=== PATIENT | male | born 1935 | race Caucasian/White ===

== ENCOUNTER 2018-12-22 05:41 | Observation (INO) ==
[2018-12-22] MEDS ORDERED: ASPIRIN 81 MG TAB.CHEW PO ONE (05:50)
--- NOTE | 2018-12-22 05:55 | ERNOTE ---
Chest Pain/Cardiac HPI Chief Complaint: Chest Pain Time Seen by Provider: 12/22/18 05:42 Source: patient Exam Limitations: no limitations Immunizations: IMMUNIZATION HX Immunizations Up to Date No History of Influenza Vaccine More Information Required Hx Pneumococcal Vaccination More Information Required Allergies/Adverse Reactions: Allergies No Known Allergies Allergy (Verified 12/22/18 05:51) Home Medications: HOME MEDICATIONS Aspirin [Aspir 81] 81 mg PO DAILY 05/21/12 [Last Taken 11/05/12] Tamsulosin HCl [Flomax] 0.4 mg PO HS 05/21/12 [Last Taken 11/05/12] ibandronate 150 mg tablet 150 mg PO Q30D #3 tab 03/31/18 [Last Taken Unknown] acetaminophen 500 mg tablet 1,000 mg PO DAILY PRN tab 06/13/18 [Last Taken Unknown] pantoprazole 20 mg tablet,delayed release 20 mg PO DAILY #90 tab 07/14/18 [Last Taken Unknown] folic acid 1 mg tablet See Rx Instructions .ROUTE .COMPLEX #90 tablet 08/05/18 [Last Taken Unknown] amlodipine 10 mg tablet 10 mg PO DAILY #90 tab 11/11/18 [Last Taken Unknown] benazepril 20 mg tablet 20 mg PO DAILY #90 tab 12/04/18 [Last Taken Unknown] calcium carbonate 600 mg (1,500 mg)-vitamin D3 200 unit tablet 1 tab PO BID tab 12/11/18 [Last Taken Unknown] finasteride 5 mg tablet 5 mg PO .QOD tab 12/11/18 [Last Taken Unknown] methotrexate sodium 2.5 mg tablet 12.5 mg PO QWEEK tab 12/11/18 [Last Taken Unknown] Narrative: Patient woke up this morning with left sided chest pain, no other symptoms, no aggravating or alleviating symptoms, no prior heart disease Date (Duration): 12/22/18 Time (Timing): 03:00 Timing: constant Severity/Quality: severe, aching Location: shoulder, left chest Chest Pain Radiation: shoulders Activities at Onset: sleep Modifying Factors - Improves: Present: nothing Modifying Factors - Worsens: Present: nothing Nitro Today/Relief: no nitro taken today Aspirin Treatment Today: 81 mg x 1, provided at home Associated Symptoms: Absent: headache, dizziness, syncope, shortness of breath, diaphoresis, nausea, vomiting Prior Chest Pain/Cardiac Workup: Denies: prior chest pain, no prior cardiac workup Prior Treatment: Denies: recently seen, currently on antibiotics Review of Systems - Review of Systems Constitutional: Absent: recent illness, fever ENT: Present: no symptoms reported Respiratory: Absent: shortness of breath Cardiology: Present: See HPI, chest pain. Absent: palpitations Gastrointestinal/Abdominal: Absent: nausea, vomiting, abdominal pain Genitourinary: Present: no symptoms reported Musculoskeletal: Absent: back pain Neurological: Absent: headache, weakness, numbness Medical History (Updated 12/22/18 @ 07:31 by Nancy Mccormick MD) Hyperplasia, prostate (Chronic) Onset Date: Unknown benign localized hyperplasia of prostate without urinary obstruction and other lower urinary tract symptoms GERD (gastroesophageal reflux disease) (Chronic) Onset Date: Unknown GI bleed Hypertension (Chronic) Onset Date: Unknown Osteoporosis (Chronic) Onset Date: Unknown Parkinsonism (Chronic) Onset Date: 2007 Rheumatoid arthritis (Chronic) Onset Date: Unknown Cholelithiasis Onset Date: 07/11/08 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 Juli- hyperplastic polyp. Recheck 10yrs. H/O esophagogastroduodenoscopy Onset Date: 05/19/06 any--UGI BLEED---Dr. Bustos-negative 07-20-2008 with biopsy H/O hernia repair Onset Date: Unknown History of cataract surgery Onset Date: 08/30/[address] Mulligan History of laryngoscopy Onset Date: Unknown removal of cyst Hx of cholecystectomy Onset Date: 07/20/08 Dr. Bustos lap-sadia Hx of tonsillectomy Onset Date: Unknown S/P nasal surgery Onset Date: Unknown Basal cell ca removed-Dr Lopez Family History: Family History (Updated 11/12/17 @ 06:58 by Van Be MA) Father Hypertension Prostate cancer Hyperlipemia Mother CHF (congestive heart failure) Sister CVA (cerebral vascular accident) Heart disease Social History: (Last Reviewed 12/22/18 @ 05:51 by Muriel Uriarte RN) Social History: adopted: No foster care: No Marital status: lives independently: No household members: spouse caregiver/support person: No current occupational status: retired current occupation: retired-[employer] Highest education level completed: Associate degree: [employer] Service: Yes branch: [employer] Tobacco: Smoking Status: Former smoker Alcohol: alcohol intake: former Substance Use: substance use type: does not use Dietary Habits: caffeine: Yes caffeine comment: some days only Type: carbonated beverages Physical Exam - Physical Exam General Appearance: Present: wd/wn, alert, no apparent distress Head Exam: Present: normal inspection Eye Exam: Normal inspection: bilateral, PERRL: bilateral Respiratory: Present: no respiratory distress, normal breath sounds, no accessory muscle use, lungs clear Cardiovascular/Chest: Present: regular rate, rhythm, no murmur Gastrointestinal/Abdominal: Present: normal bowel sounds Extremity Exam: Present: no edema Neurological Exam: Present: alert, oriented, normal mood/affect Skin Exam: Present: normal color, warm/dry Progress - Results and Orders Patient's Lab Results:: I have reviewed the patient's lab results. - Vital Signs Patient's Vital Signs:: I have reviewed the patient's vital signs. Vital Signs: Vital Signs 12/22/18 05:47 Pulse Rate 125 H Respiratory Rate 16 Blood Pressure 143/82 O2 Sat by Pulse Oximetry 96 - EKG EKG #1 EKG: atrial fibrillation - RVR, HR 126, nonspecific ST T wave changes EKG read: Interp. by me - X-Ray X-Ray #1 X-Ray: chest - no acute changes Interpretation: Interp. by me - Progress/Reassessment Chief Complaint: Chest Pain Progress Note-Subjective: 12/22/18 07:05 pain better after one nitro, HR 90-100's discussed test results with patient and family 12/22/18 07:26 discussed test results, suggested admission for chest pain and new onset afib, patient agreed pain almost gone 12/22/18 07:30 discussed with iván West to admit for observation Departure Clinical Impression: New onset a-fib Chest pain Qualifiers: Chest pain type: unspecified Qualified Code(s): R07.9 - Chest pain, unspecified - Departure Disposition: Still a patient Condition: Stable
[2018-12-22] MEDS: NITROGLYCERIN 0.4 MG/TAB BTL SL PRN ×2 (05:56→06:02)
[2018-12-22 06:05] LABS: Hematocrit 43.8 % (42.0-52.0); Hemoglobin 14.4 gm/dL (13.5-18.0); Mean Corpuscular Hemoglobin 30.9 pg (27-31); Mean Corpuscular Hgb Conc 32.9 g/dl (32-36); Mean Platelet Volume 9.4 fl (8-11.3); Neutrophil # 9.1 K/mm3 (1.3-6.0); Platelet Count 219 K/mm3 (150-450); Red Blood Count 4.66 M/mm3 (4.7-6.0); White Blood Count 12.2 K/mm3 (4.0-10.5)
[2018-12-22 06:16] LABS: Prothrombin Time (Patient) 9.8 Seconds (9.1-10.7)
[2018-12-22 06:20] LABS: INR 0.99 INR (0.92-1.08); Partial Thrombolplastin Time 25.7 Seconds (24-32)
[2018-12-22 06:24] LABS: ALT 13 U/L (19-67); AST 15 U/L (0-48); Albumin * 3.6 gm/dl (3.4-5.0); Alkaline Phosphatase * 70 U/L (50-170); Anion Gap 13.3 mmol/L (6.8-13.8); BUN/Creatinine Ratio 22.1 (9.0-21.6); Bilirubin, Total 0.6 mg/dL (0.0-1.1); Blood Urea Nitrogen 17 mg/dL (6-23); Ca. Corrected For Albumin 8.8 mg/dL (8.4-10.2); Calcium * 8.8 mg/dL (7.9-10.9); Carbon Dioxide 25.9 mmol/L (24-32.6); Chloride 104 mmol/L (97-106); Glucose * 110 mg/dL (70-110); Potassium 4.2 mmol/L (3.4-4.6); Sodium 139 mmol/L (132-142); Total Protein 6.8 gm/dL (6.2-8.2)
[2018-12-22 06:26] LABS: Troponin I Less than 0.017 ng/mL (0.00-0.10)
[2018-12-22] MEDS ORDERED: NORMAL SALINE 500 ML IV ONE (06:39)
[2018-12-22] MEDS ORDERED: ROSUVASTATIN CALCIUM 20 MG TABLET PO STA (07:34)
[2018-12-22] MEDS ORDERED: ACETAMINOPHEN 500 MG TABLET PO PRN (08:19)
[2018-12-22] MEDS ORDERED: IBANDRONATE SODIUM 150 MG PO SCH (08:30)
[2018-12-22] MEDS ORDERED: FINASTERIDE 5 MG TABLET PO SCH (08:30)
[2018-12-22] MEDS ORDERED: PANTOPRAZOLE SODIUM 20 MG TABLET.DR PO SCH (09:00)
[2018-12-22] MEDS ORDERED: CALCIUM CARBONATE/VITAMIN D3 1 TAB TABLET PO SCH (09:00)
[2018-12-22] MEDS ORDERED: FOLIC ACID 1 MG TABLET PO SCH ×2 (09:00→18:00)
[2018-12-22] MEDS ORDERED: ASPIRIN 81 MG TABLET.DR PO SCH (09:00)
--- NOTE | 2018-12-22 09:10 | HP ---
Chief Complaint - Chief Complaint Date of Service: 12/22/18 Time of Service: 08:54 Chief Complaint: chest pain, new onset atrial fibrillation History of Present Illness: Patient with past medical history of hypertension, rheumatoid arthritis, reflux woke overnight with left-sided chest and left shoulder pain. Denies shortness of breath or vomiting. He went to the ER, was given nitro, and the chest pain is better now. He did have a decrease in his blood pressure after the nitro was given, requiring a 500 cc bolus of NS. He reports having similar symptoms in the past, and believes it was felt to be musculoskeletal. It does not feel like heartburn to him. He did state he tried to do some push-ups yesterday. Denies history of anxiety. No recent cough or fevers. 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 ' Juli- hyperplastic polyp. Recheck 10yrs. H/O esophagogastroduodenoscopy Onset Date: 05/19/06 any--UGI BLEED---Dr. Bustos-negative 07-20-2008 with biopsy H/O hernia repair Onset Date: Unknown History of cataract surgery Onset Date: 08/30/[address] Mulligan History of laryngoscopy Onset Date: Unknown removal of cyst Hx of cholecystectomy Onset Date: 07/20/08 Dr. Bustos lap-sadia Hx of tonsillectomy Onset Date: Unknown S/P nasal surgery Onset Date: Unknown Basal cell ca removed-Dr Lopez Family History: Family History (Updated 11/12/17 @ 06:58 by Van Be MA) Father Hypertension Prostate cancer Hyperlipemia Mother CHF (congestive heart failure) Sister CVA (cerebral vascular accident) Heart disease Social History: (Last Reviewed 12/22/18 @ 08:34 by Yuliya Casarez RN) Social History: adopted: No foster care: No Marital status: lives independently: No household members: spouse caregiver/support person: No current occupational status: retired current occupation: retired-[employer] Highest education level completed: Associate degree: [employer] Service: Yes branch: [employer] Tobacco: Smoking Status: Former smoker Alcohol: alcohol intake: former Substance Use: substance use type: does not use Dietary Habits: caffeine: Yes caffeine comment: some days only Type: carbonated beverages Review Of Systems (GEN) - Review of Systems Generalized/Overall Review: Absent: Fever Respiratory: Absent: Cough, Shortness of Breath Cardiac: Present: Chest Pain, Edema - mild, nightly Abdominal: Absent: Nausea, Vomiting Genitourinary: Present: No Symptoms Reported Musculoskeletal: Present: Joint Pain - left shoulder Neurological: Present: No Symptoms Reported Skin: Present: Other - previous skin cancers Immunizations: IMMUNIZATION HX Immunizations Up to Date No History of Influenza Vaccine More Information Required Hx Pneumococcal Vaccination More Information Required Allergies/Adverse Reactions: Allergies Allergy/AdvReac Type Severity Reaction Status Date / Time No Known Allergies Allergy Verified 12/22/18 05:51 Home Medications: HOME MEDICATIONS Aspirin [Aspir 81] 81 mg PO DAILY 05/21/12 [Last Taken 11/05/12] Tamsulosin HCl [Flomax] 0.4 mg PO HS 05/21/12 [Last Taken 11/05/12] ibandronate 150 mg tablet 150 mg PO Q30D #3 tab 03/31/18 [Last Taken Unknown] acetaminophen 500 mg tablet 1,000 mg PO DAILY PRN tab 06/13/18 [Last Taken Unknown] pantoprazole 20 mg tablet,delayed release 20 mg PO DAILY #90 tab 07/14/18 [Last Taken Unknown] amlodipine 10 mg tablet 10 mg PO DAILY #90 tab 11/11/18 [Last Taken Unknown] benazepril 20 mg tablet 20 mg PO DAILY #90 tab 12/04/18 [Last Taken Unknown] calcium carbonate 600 mg (1,500 mg)-vitamin D3 200 unit tablet 1 tab PO BID tab 12/11/18 [Last Taken Unknown] finasteride 5 mg tablet 5 mg PO Q48H tab 12/11/18 [Last Taken Unknown] methotrexate sodium 2.5 mg tablet 12.5 mg PO QWEEK tab 12/11/18 [Last Taken Unknown] RX: Folic Acid 1 tab PO DAILY 12/22/18 [Last Taken Unknown] Exam - Exam Vital Signs: Vital Signs - Last Taken Temp 36.8 C 12/22/18 08:24 Pulse 87 12/22/18 08:24 Resp 16 12/22/18 08:24 BP 133/75 12/22/18 08:24 Pulse Ox 97 12/22/18 08:24 Constitutional: Present: Alert, Oriented x3, Cooperative, Well developed ENT Exam: Present: moist mucous membranes Neck: Absent: lymphadenopathy (R), lymphadenopathy (L) Respiratory: Present: chest non-tender, lungs clear, No wheezing Cardiovascular/Chest: Present: irregularly irregular - HR 92. Absent: edema Abdomen: Present: Normal bowel sounds, soft, nontender Extremity: Absent: lower extremity edema Skin Exam: Present: other - seborrheic keratoses of scalp Neurologic: Present: normal mood/affect Eye contact: Present: cooperative Diagnostic Studies: Abnormal Lab Results 12/22/18 12/22/18 Range/Units 06:03 06:03 WBC 12.2 H (4.0-10.5) K/mm3 RBC 4.66 L (4.7-6.0) M/mm3 Immature Gran # (Auto) 0.04 H (0.000-0.0310) K/mm3 Lymphocytes % 16.6 L (20-51) % Neutrophils # 9.1 H (1.3-6.0) K/mm3 BUN/Creatinine Ratio 22.1 H (9.0-21.6) ALT 13 L (19-67) U/L Laboratory Results WBC 12.2 K/mm3 (4.0-10.5) H 12/22/18 06:03 RBC 4.66 M/mm3 (4.7-6.0) L 12/22/18 06:03 Hgb 14.4 gm/dL (13.5-18.0) 12/22/18 06:03 Hct 43.8 % (42.0-52.0) 12/22/18 06:03 MCV 94.0 fl (78-100) 12/22/18 06:03 MCH 30.9 pg (27-31) 12/22/18 06:03 MCHC 32.9 g/dl (32-36) 12/22/18 06:03 RDW 14.0 % (11.5-14.0) 12/22/18 06:03 Plt Count 219 K/mm3 (150-450) 12/22/18 06:03 MPV 9.4 fl (8-11.3) 12/22/18 06:03 Immature Gran % (Auto) 0.30 % (0.001-0.429) 12/22/18 06:03 Immature Gran # (Auto) 0.04 K/mm3 (0.000-0.0310) H 12/22/18 06:03 74.0 % (42-75.0) 12/22/18 06:03 16.6 % (20-51) L 12/22/18 06:03 7.3 % (0.0-9) 12/22/18 06:03 1.5 % (0.0-3.0) 12/22/18 06:03 0.3 % (0.0-1.0) 12/22/18 06:03 Nucleated RBC % 0.0 k/mm3 (0-1) 12/22/18 06:03 9.1 K/mm3 (1.3-6.0) H 12/22/18 06:03 2.03 k/mm3 (1.5-3.5) 12/22/18 06:03 0.9 k/mm3 (0.0-1.0) 12/22/18 06:03 0.2 k/mm3 (0.0-0.7) 12/22/18 06:03 Absolute Basophils 0.0 k/mm3 (0.0-0.1) 12/22/18 06:03 PT 9.8 Seconds (9.1-10.7) 12/22/18 06:03 INR (Anticoag Therapy) 0.99 INR (0.92-1.08) 12/22/18 06:03 PTT ([place]) 25.7 Seconds (24-32) 12/22/18 06:03 Sodium 139 mmol/L (132-142) 12/22/18 06:03 139 mmol/L (130-142) 12/22/18 06:03 Potassium 4.2 mmol/L (3.4-4.6) 12/22/18 06:03 Chloride 104 mmol/L (97-106) 12/22/18 06:03 Carbon Dioxide 25.9 mmol/L (24-32.6) 12/22/18 06:03 13.3 mmol/L (6.8-13.8) 12/22/18 06:03 BUN 17 mg/dL (6-23) 12/22/18 06:03 0.77 mg/dL (0.4-1.4) 12/22/18 06:03 Est GFR (Non-Af Amer) 103 mL/min (60-130) 12/22/18 06:03 22.1 (9.0-21.6) H 12/22/18 06:03 110 mg/dL (70-110) 12/22/18 06:03 Calcium 8.8 mg/dL (7.9-10.9) 12/22/18 06:03 Calcium Adj for Albumin 8.8 mg/dL (8.4-10.2) 12/22/18 06:03 0.6 mg/dL (0.0-1.1) 12/22/18 06:03 AST 15 U/L (0-48) 12/22/18 06:03 ALT 13 U/L (19-67) L 12/22/18 06:03 70 U/L (50-170) 12/22/18 06:03 Less than 0.017 ng/mL (0.00-0.10) 12/22/18 06:03 6.8 gm/dL (6.2-8.2) 12/22/18 06:03 3.6 gm/dl (3.4-5.0) 12/22/18 06:03 TSH 2.534 uIU/mL (0.358-3.74) 12/22/18 05:15 Assessment/Plan - Assessment/Plan (1) Chest pain Assessment: Initial troponin was negative, and EKG showed A. fib with minimal ST depression in 1-lead. Will repeat troponin and EKG early this afternoon. His chest pain is improved. Differential includes ACS, pulmonary source, musculoskeletal, reflux. Given that he was trying to do some push-ups yesterday this could very possibly be musculoskeletal. Would recommend stress test after discharge. He reports having had stress tests in the past, but I am unable to locate these. If EKG and troponin do not show signs of acute ACS, can potentially DC home this evening. Problem: Acute Qualifiers: Chest pain type: unspecified Qualified Code(s): R07.9 - Chest pain, unspecified (2) New onset a-fib Assessment: Heart rate is currently controlled, around 90-100, without intervention. TSH was normal. Would recommend doing an echocardiogram after discharge. We will continue to discuss anticoagulation with him. We will also discuss potentially starting low-dose beta-greg to help with heart rate control. Problem: Acute (3) Cardiac murmur Assessment: He reports this is chronic, but unable to find a diagnosis for it source. No recent echocardiogram. Will order this with discharge orders. Problem: Chronic (4) GERD (gastroesophageal reflux disease) Problem: Chronic (5) Hypertension Assessment: His blood pressure decreased after he is given the nitro. Holding home antihypertensives until his blood pressure is consistently greater than 140/90. Problem: Chronic Qualifiers: (6) Rheumatoid arthritis Assessment: Continue home methotrexate. Problem: Chronic Qualifiers:
[2018-12-22] MEDS ORDERED: METOPROLOL TARTRATE 25 MG TABLET PO SCH (13:45)
--- NOTE | 2018-12-22 16:35 | DS ---
(1) Chest pain Problem: Acute Qualifiers: Chest pain type: unspecified Qualified Code(s): R07.9 - Chest pain, unspecified (2) New onset a-fib Problem: Acute (3) Cardiac murmur Problem: Chronic (4) GERD (gastroesophageal reflux disease) Problem: Chronic (5) Hypertension Problem: Chronic Qualifiers: (6) Rheumatoid arthritis Problem: Chronic Qualifiers: Description of Stay: Patient with past medical history of hypertension, rheumatoid arthritis, reflux woke overnight with left-sided chest and left shoulder pain. Denies shortness of breath or vomiting. He went to the ER, was given nitro, and the chest pain is better by the time of admission. He had some residual left sided pain with deeper inspiration. He did have a decrease in his blood pressure after the nitro was given, requiring a 500 cc bolus of NS. He reports having similar symptoms in the past, and believes it was felt to be musculoskeletal. It does not feel like heartburn to him. He did state he tried to do some push-ups yesterday. Denies history of anxiety. No recent cough or fevers. CP - Troponins were negative, and EKG showed A. fib with minimal ST depression in 1 lead. His chest pain source could very possibly be musculoskeletal, since he was trying to do push-ups yesterday. Nuclear stress test ordered for after discharge. He feels like he can physically tolerate an exercise stress test. afib - Heart rate is currently controlled, around 90-100, without intervention. TSH was normal. Echocardiogram ordered for after discharge. Discussed risks vs benefits of anticoagulation, and he would like to further discuss with his PCP at his hospital follow up visit. 25 mg metoprolol started for rate control, and to prohibit recurrence of afib with RVR. Procedures Performed: none Results and Findings: Lab Pending Results 12/22/18 05:15: TSH 2.534 12/22/18 06:03: WBC 12.2 H, RBC 4.66 L, Hgb 14.4, Hct 43.8, MCV 94.0, MCH 30.9, MCHC 32.9, RDW 14.0, Plt Count 219, MPV 9.4, Immature Gran % (Auto) 0.30, Immature Gran # (Auto) 0.04 H, Neutrophils % 74.0, Lymphocytes % 16.6 L, Monocytes % 7.3, Eosinophils % 1.5, Basophils % 0.3, Nucleated RBC % 0.0, Neutrophils # 9.1 H, Lymphocytes # 2.03, Monocytes # 0.9, Eosinophils # 0.2, Absolute Basophils 0.0 12/22/18 06:03: PT 9.8, INR (Anticoag Therapy) 0.99, PTT ([place]) 25.7 12/22/18 06:03: Sodium 139, Plasma Sodium 139, Potassium 4.2, Chloride 104, Carbon Dioxide 25.9, Anion Gap 13.3, BUN 17, Creatinine 0.77, Est GFR (Non-Af Amer) 103, BUN/Creatinine Ratio 22.1 H, Random Glucose 110, Calcium 8.8, Calcium Adj for Albumin 8.8, Total Bilirubin 0.6, AST 15, ALT 13 L, Alkaline Phosphatase 70, Troponin I Less than 0.017, Total Protein 6.8, Albumin 3.6 12/22/18 11:46: Troponin I Less than 0.017 Discharge Location: Home Disposition: Home self-care Condition: Good Discharge Activity: Activity as tolerated Discharge Diet: General/regular food Referrals: Christina Leos FNP [Primary Care Provider] - One Week Additional Patient Instructions (free text): -Please make TCM appointment unless longterm discharge, or if following up with outside provider. Thank you! Franchesca @ [phone] or Christina at [phone]. Prescriptions (Any new or edited meds): Metoprolol Tartrate [Lopressor] 25 mg PO BID #60 tab Complete Home Medications List: Complete Home Medication List: Aspirin [Aspir 81] 81 mg PO DAILY 05/21/12 Tamsulosin HCl [Flomax] 0.4 mg PO HS 05/21/12 ibandronate 150 mg tablet 150 mg PO Q30D #3 tab 03/31/18 acetaminophen 500 mg tablet 1,000 mg PO DAILY PRN tab 06/13/18 pantoprazole 20 mg tablet,delayed release 20 mg PO DAILY #90 tab 07/14/18 amlodipine 10 mg tablet 10 mg PO DAILY #90 tab 11/11/18 benazepril 20 mg tablet 20 mg PO DAILY #90 tab 12/04/18 calcium carbonate 600 mg (1,500 mg)-vitamin D3 200 unit tablet 1 tab PO BID tab 12/11/18 finasteride 5 mg tablet 5 mg PO Q48H tab 12/11/18 methotrexate sodium 2.5 mg tablet 12.5 mg PO QWEEK tab 12/11/18 Folic Acid 1 tab PO DAILY 12/22/18 Metoprolol Tartrate [Lopressor] 25 mg PO BID #60 tab 12/22/18 Amb Orders for Discharge: NUC Treadmill Stress Test Time Frame: 12/31/18, Location: Radiology US Echocardiogram Complete * Time Frame: 12/31/18, Location: Radiology
[2018-12-22 17:10] VITALS: BP 137/87
[2018-12-22] MEDS ORDERED: TAMSULOSIN HCL 0.4 MG CAP.SR.24H PO SCH (21:00)
[2018-12-23] MEDS ORDERED: FINASTERIDE 5 MG TABLET PO SCH (08:30)
[2018-12-27] MEDS ORDERED: METHOTREXATE SODIUM 2.5 MG TABLET PO SCH (09:00)
== END 2018-12-22 17:20 | disposition home or self-care (01) ==
LOC: ER 05:41 → MS 05:41
PROVIDERS: ADMIT Family Medicine; ATTEND Family Medicine
DX: M06.9 Rheumatoid arthritis, unspecified; R07.9 Chest pain, unspecified; I48.91 Unspecified atrial fibrillation; R01.1 Cardiac murmur, unspecified; K21.9 Gastro-esophageal reflux disease without esophagitis; I10 Essential (primary) hypertension
CPT/HCPCS: 36415; 71020; 71046; 80053; 84443; 84484; 85025; 85610; 85730; 93005; 96360; 99284; G0378